=== PATIENT | male | born 1980 | race African-American/Black ===

== ENCOUNTER 2024-06-15 17:23 | Emergency (ER) | payer OTHER, SELFPAY ==
[2024-06-15] VITALS (39 sets, daily range): BP systolic 100–166; BP diastolic 52–99; PULSE 76–159; RESP 10–51; TEMP 36.8; O2SAT 96–100
--- NOTE | ~2024-06-15 | CT_ITS ---
EXAMINATION: CT brain wo con DATE: 06/15/2024 18:26 INDICATION: seizures . TECHNIQUE: Computed tomography (CT) of the head was performed without intravenous contrast. The mA wa s adjusted according to patient size. Iterative reconstruction technique was employed. The dose-lengt h product was 1346.88 mGy-cm. COMPARISON: None. FINDINGS: The vertex of the skull is excluded from the [id number] in the bone window images. No acute intracranial hemorrhage or extra-axial fluid collection. No hydrocephalus, mass, or herniation. No acute ischemic infarct. Unremarkable dural venous sinus attenuation. No acute osseous abnormality. Small posterior scalp contusion. Small right maxillary and right sphenoid retention cyst or polyp, mild ethmoid mucosal thickening, th e remaining aerated spaces are clear. IMPRESSION: No acute intracranial process. Reviewed, dictated and finalized at location K.
--- NOTE | ~2024-06-15 | XR_ITS ---
EXAMINATION: XR chest 1V portable Exam Date/Time: 06/15/2024 18:45 CDT HISTORY: seizures Comparison: None. RESULT: Lines, tubes, and devices: None. Lungs and pleura: Clear. Mild leftward rotation. Cardiomediastinal silhouette: Unremarkable. Other: No acute osseous or upper abdominal finding. IMPRESSION: No acute cardiopulmonary process. Reviewed, dictated and finalized at location K.
--- NOTE | 2024-06-15 17:34 | ECG_ITS ---
Test Date: 2024-06-15 19:18:58 Measurements Intervals [place] Rate: 97 P: 45 CO: 173 QRS: 43 QRSD: 98 T: 43 QT: 345 QTc: 440 Interpretive Statements SINUS RHYTHM No previous ECG available for comparison Electronically Signed On 06-16-2024 14:35:50 CDT by Gabbi Luu M.D.
[2024-06-15 17:51] LABS: Hematocrit 46.4 % (42.0-52.0); Hemoglobin 13.8 g/dL (14.0-18.0); Mean Corpuscular HGB Conc 29.7 g/dl (32-36); Mean Corpuscular Hemoglobin 31.5 pg (26-34); Mean Corpuscular Volume 105.9 fl (80-100); Mean Platelet Volume 9.9 fl (7.4-10.4); Platelet Count Result 333 k/mm3 (150-375); Red Blood Count 4.38 M/mm3 (4.6-6.20); Red Cell Distribution Width 12.6 % (11.5-14.5); White Blood Count 15.4 K/mm3 (4.5-10.0)
[2024-06-15] MEDS: levETIRAcetam 1500MG/NACL100ML 1,500 MG/100 ML BAG 400 MG IVPB (17:52)
[2024-06-15] MEDS: SODIUM CHLORIDE 0.9% IV 1,000 ML 999 ML IV CONT ×2 (17:52→19:08)
[2024-06-15 18:02] LABS: Ethanol < 10 mg/dL (<10)
[2024-06-15 18:07] LABS: Albumin Level 5.6 g/dL (3.5-5.1); Alkaline Phosphatase 148 U/L (38-126); Aspartate Amino Transferase 44 U/L (17-59); Bilirubin,Total 0.4 mg/dL (0.2-1.3); Blood Urea Nitrogen 20 mg/dL (9-20); Calcium 10.8 mg/dL (8.4-10.2); Carbon Dioxide < 5 mmol/L (22-30); Chloride 108 mmol/L (98-107); Creatine Kinase 559 U/L (55-170); Estimated CRCL calculation 65 ml/min; Estimated Glomerular Filt Rate 38; Glucose 173 mg/dL (65-110); Sodium 149 mmol/L (137-145)
[2024-06-15 18:09] LABS: INR 1.3; Partial Thromboplastin Time 24.9 Seconds (22.3-36.8); Prothrombin Time 16.7 Seconds (11.1-14.7)
[2024-06-15 18:12] LABS: Alanine Aminotransferase 77 U/L (6-50)
--- NOTE | 2024-06-15 18:14 | ED.SEIZURE ---
HPI - Seizure General Chief Complaint: Seizure Stated Complaint: seizure Time Seen by Provider: 06/15/24 17:29 Source: patient, EMS and old records reviewed Mode of arrival: EMS Limitations: clinical condition History of Present Illness HPI Narrative: Patient is a 43-year-old male who presents the ED via EMS with report of seizures. Per EMS report, patient had a seizure on the bus today. EMS was called. Patient does have a seizure history. Is on lamotrigine and Keppra. Reportedly had his medications increased 1 month ago. Upon arrival to the ED, patient was alert oriented, able to answer the nurse's questions. He then developed a generalized tonic-clonic seizure which lasted for approximately 1 minute. He did not require abortive medications. Upon my evaluation, patient somnolent, unable to answer questions, but maintaining his airway. On re-evaluation, patient alert oriented x4, able to answer all my questions. States his seizure medications are typically filled through Dr. Deleon PCP at [facility]. He does not currently follow with a neurologist. Significant other at bedside reports that patient has been out of his medications recently and has not made an appointment to have them refilled. Typically has 5-6 seizures every few months. Related Data Allergies Allergy/AdvReac Type Severity Reaction Status Date / Time No Known Drug Allergies Allergy Unknown Verified 06/15/24 17:55 Review of Systems Review of Systems: ROS unobtainable: Yes unobtainable due to medical condition Exam Narrative: GENERAL: Ill appearing, obese with BMI of 32.9, somnolent. HEAD: Normocephalic, atraumatic. RESPIRATORY: Airway patent, respirations nonlabored. Clear to auscultation bilaterally, no rales, rhonchi, wheezing. CARDIOVASCULAR: Tachycardic with regular rhythm without murmurs, rubs, or gallops. Peripheral pulses intact ABDOMINAL: Soft, nondistended. Normoactive BS. MUSCULOSKELETAL: No gross deformities. SKIN: Warm, dry, normal color. NEURO: Somnolent, unable to answer questions or follow commands. No ataxic movements. PSYCHIATRIC: Unable to assess Course Vital Signs Vital signs: Vital Signs Temperature 98.3 F 06/15/24 17:22 Pulse Rate 115 H 06/15/24 17:22 Respiratory Rate 24 H 06/15/24 17:22 Blood Pressure 151/99 H 06/15/24 17:22 Pulse Oximetry 98 06/15/24 17:22 Temperature 98.3 F 06/15/24 17:22 Pulse Rate 86 06/15/24 22:30 Respiratory Rate 22 H 06/15/24 22:30 Blood Pressure 105/81 06/15/24 20:32 Pulse Oximetry 98 06/15/24 22:00 Oxygen Delivery Room Air 06/15/24 22:00 MDM - Seizure MDM Narrative Medical decision making narrative: Patient presented to ED via EMS with report of seizure on public transportation bus. Patient was tachycardic upon arrival, rates 115-150s on monitor. Appears sinus. Blood pressure is stable. Patient is afebrile. Oxygen stable on room air. Patient maintaining respiratory status. No signs of airway compromise. Per ED nurse, patient was initially A&O x4 upon arrival. He then proceeded to have a generalized tonic-clonic seizure, which was witnessed by ED nurse. Lasted for approximately 1 minute. Resolved spontaneously. Upon my initial evaluation, patient was postictal, confused, unable to answer my questions. Re-evaluation approximately 30 minutes later, patient was coming back around, A&O X4, no gross focal deficits, moving all extremities equally, strength 5/5 in upper and lower extremities bilaterally, CN grossly intact, no complaints, able to tell me he was at the bus stop, states he feels like he usually does after a seizure. Last seizure was last month. Patient does admit to noncompliance with keppra and lamotrigine. States he has taken his medications 4 of the last 7 days. Did take his medications today. States he has not seen a neurologist in the last couple of years. CT brain negative. No acute intracranial findings. Chest x-ray is clear. CBC with white blood cell count of 15.4. H&H is stable. Platelets are stable. Patient profoundly acidotic on CMP. Bicarb less than 5. Anion gap unable to be calculated. ABG obtained. Consistent with metabolic acidosis. There is some compensation as pCO2 is low. Lactic acid > 12. Will give fluids, continue to monitor, and repeat labs. Patient remains alert and orientated at this time. Able to converse easily. CMP with Na 149. 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 No records to compare to. Fluids ongoing. Blood sugar is 173. No known hx of DM. Potentially stress rxn. Potassium within normal range. Magnesium elevated to 3.0. CK 559, likely r/t sz. Fluids ongoing. EKG with normal sinus rhythm, no concerning ST changes. Troponin is undetectable. UA is clear. Trace ketones. UDS clear. Alcohol level negative. Patient given 2 L of fluid in the ED. Repeat ABG is remarkably improved. PH normalized at 7.35. PCO2 35. PO2 89. Bicarb 19. Repeat CMP also much improved. Bicarb 18. Anion gap of 12. Creatinine down to 1.48. Lactic acid nearly normalized down to 2.3. Discussed repeat labs with patient. While these are very reassuring, discussed recommendation for admission to the hospital for further observation and neurologic evaluation given multiple seizures today and profound acidosis. Patient advised that he is unable to take off any further work. He states he cannot afford to stay in the hospital and miss work. I discussed that while I acknowledged the importance of attending work and providing for family, emphasized critical nature of patient's visit/labs today. Patient voiced understanding. Discussed that if patient would like to decline admission, that he would need to sign out against medical advice. Patient is in agreement with this. He voiced understanding of all risks of signing out AMA, including . Paperwork was signed. Discussed that patient can return at any time to resume evaluation. Will refer patient to Neurology for further outpatient workup. Also provided patient with refill of sz prescriptions, sent to pharmacy. Discussed very strict return precautions. Patient left the facility in stable condition, ambulatory with a steady gait, remained neurologically intact at time of leaving facility. Medical Records Attestation: I reviewed the patient's medical records. Lab Data Attestation: I reviewed the patient's lab results. 06/15/24 17:45 06/15/24 21:13 Labs: Lab Results 06/15/24 06/15/24 06/15/24 Range/Units 17:44 17:45 17:53 WBC 15.4 H (4.5-10.0) K/mm3 RBC 4.38 L (4.6-6.20) M/mm3 Hgb 13.8 L (14.0-18.0) g/dL Hct 46.4 (42.0-52.0) % MCV 105.9 H (80-100) fl MCH 31.5 (26-34) pg MCHC 29.7 L (32-36) g/dl RDW 12.6 (11.5-14.5) % Plt Count 333 (150-375) k/mm3 MPV 9.9 (7.4-10.4) fl Immature Gran % (Auto) Not Reportable Neut % (Auto) Not Reportable Lymph % (Auto) Not Reportable Frontier % (Auto) Not Reportable Eos % (Auto) Not Reportable Baso % (Auto) Not Reportable Lymph # (Auto) Not Reportable Frontier # (Auto) Not Reportable Eos # (Auto) Not Reportable Baso # (Auto) Not Reportable Abs Immat Gran (auto) Not Reportable Absolute Neuts (auto) Not Reportable Absolute Nucleated RBC Not Reportable Total Counted 100 Neutrophils % (Manual) 47 (46-73) % Band Neutrophils % 0 (0-6) % Lymphocytes % (Manual) 35.0 (18-44) % Monocytes % (Manual) 16 H (3-9) % Eosinophils % (Manual) 2 (0-4) % Nucleated RBC % Not Reportable Abs Neuts (Manual) 7.23 H (1.3-6.7) K/mm3 Abs Lymphs (Manual) 5.39 H (1.1-4.5) K/mm3 Abs Monocytes (Manual) 2.46 H (0.1-0.90) K/mm3 Absolute Eos (Manual) 0.30 (0.02-0.50) K/mm3 Platelet Estimate Adequate (Adequate) Hypochromasia 1+ Schistocytes None seen PT 16.7 H (11.1-14.7) Seconds INR 1.3 APTT 24.9 (22.3-36.8) Seconds Methemoglobin (0-1.5) %THb Sodium 149 H (137-145) mmol/L Potassium 4.0 (3.4-5.0) mmol/L Chloride 108 H (98-107) mmol/L Carbon Dioxide < 5 L (22-30) mmol/L Anion Gap (4-12) mmol/L BUN 20 (9-20) mg/dL Creatinine 1.96 H (0.7-1.3) mg/dL Estim Creat Clear Calc 65 ml/min Estimated GFR 38 L (59 - ) Glucose 173 H (65-110) mg/dL Lactic Acid (0.7-2.0) mmol/L Calcium 10.8 H (8.4-10.2) mg/dL Magnesium 3.0 H (1.6-2.3) mg/dL Total Bilirubin 0.4 (0.2-1.3) mg/dL AST 44 (17-59) U/L ALT 77 H (6-50) U/L Alkaline Phosphatase 148 H (38-126) U/L Total Creatine Kinase 559 H (55-170) U/L Troponin I < 0.012 (0.000-0.034) ng/mL Total Protein 10.0 H (6.3-8.2) g/dL Albumin 5.6 H (3.5-5.1) g/dL Urine Color (Yellow) Urine Appearance (Clear) Urine pH (5.0-9.0) Ur Specific [place] (1.001-1.035) Urine Protein (Negative) mg/dL Urine Glucose (UA) (Negative) mg/dL Urine Ketones (Negative) mg/dL Ur Blood (Man) (Negative) Urine Nitrate (Negative) Urine Bilirubin (Negative) Urine Urobilinogen (<2.0) mg/dL Leukocyte Esterase Rfl (Negative) KALINA/UL Urine RBC (0-2) /hpf Urine WBC (0-3) /hpf Ur Squamous Epith Cells (Few) /hpf Urine Bacteria /hpf Urine Casts Hyaline Casts (None) /lpf Urine Opiates Screen (Negative) Urine Methadone Screen (Negative) Ur Barbiturates Screen (Negative) Ur Phencyclidine Scrn (Negative) Ur Amphetamine Screen (Negative) U Benzodiazepines Scrn (Negative) Urine Cocaine Screen (Negative) U Cannabinoids Screen (Negative) Ethyl Alcohol < 10 (<10) mg/dL 06/15/24 06/15/24 06/15/24 Range/Units 18:05 18:27 20:37 WBC (4.5-10.0) K/mm3 RBC (4.6-6.20) M/mm3 Hgb (14.0-18.0) g/dL Hct (42.0-52.0) % MCV (80-100) fl MCH (26-34) pg MCHC (32-36) g/dl RDW (11.5-14.5) % Plt Count (150-375) k/mm3 MPV (7.4-10.4) fl Immature Gran % (Auto) Neut % (Auto) Lymph % (Auto) [place] % (Auto) Eos % (Auto) Baso % (Auto) Lymph # (Auto) [place] # (Auto) Eos # (Auto) Baso # (Auto) Abs Immat Gran (auto) Absolute Neuts (auto) Absolute Nucleated RBC Total Counted Neutrophils % (Manual) (46-73) % Band Neutrophils % (0-6) % Lymphocytes % (Manual) (18-44) % Monocytes % (Manual) (3-9) % Eosinophils % (Manual) (0-4) % Nucleated RBC % Abs Neuts (Manual) (1.3-6.7) K/mm3 Abs Lymphs (Manual) (1.1-4.5) K/mm3 Abs Monocytes (Manual) (0.1-0.90) K/mm3 Absolute Eos (Manual) (0.02-0.50) K/mm3 Platelet Estimate (Adequate) Hypochromasia Schistocytes PT (11.1-14.7) Seconds INR APTT (22.3-36.8) Seconds Methemoglobin 0.5 0.3 (0-1.5) %THb Sodium (137-145) mmol/L Potassium (3.4-5.0) mmol/L Chloride (98-107) mmol/L Carbon Dioxide (22-30) mmol/L Anion Gap (4-12) mmol/L BUN (9-20) mg/dL Creatinine (0.7-1.3) mg/dL Estim Creat Clear Calc ml/min Estimated GFR (59 - ) Glucose (65-110) mg/dL Lactic Acid (0.7-2.0) mmol/L Calcium (8.4-10.2) mg/dL Magnesium (1.6-2.3) mg/dL Total Bilirubin (0.2-1.3) mg/dL AST (17-59) U/L ALT (6-50) U/L Alkaline Phosphatase (38-126) U/L Total Creatine Kinase (55-170) U/L Troponin I (0.000-0.034) ng/mL Total Protein (6.3-8.2) g/dL Albumin (3.5-5.1) g/dL Urine Color Yellow (Yellow) Urine Appearance Clear (Clear) Urine pH 5.5 (5.0-9.0) Ur Specific [place] 1.024 (1.001-1.035) Urine Protein 2+ H (Negative) mg/dL Urine Glucose (UA) Negative (Negative) mg/dL Urine Ketones Trace H (Negative) mg/dL Ur Blood (Man) 2+ H (Negative) Urine Nitrate Negative (Negative) Urine Bilirubin Negative (Negative) Urine Urobilinogen 0.2 (<2.0) mg/dL Leukocyte Esterase Rfl Negative (Negative) KALINA/UL Urine RBC 0-2 (0-2) /hpf Urine WBC 0-5 (0-3) /hpf Ur Squamous Epith Cells None seen (Few) /hpf Urine Bacteria None seen /hpf Urine Casts 6-10 Hyaline Casts Present (None) /lpf Urine Opiates Screen Negative (Negative) Urine Methadone Screen Negative (Negative) Ur Barbiturates Screen Negative (Negative) Ur Phencyclidine Scrn Negative (Negative) Ur Amphetamine Screen Negative (Negative) U Benzodiazepines Scrn Negative (Negative) Urine Cocaine Screen Negative (Negative) U Cannabinoids Screen Negative (Negative) Ethyl Alcohol (<10) mg/dL 06/15/24 Range/Units 21:13 WBC (4.5-10.0) K/mm3 RBC (4.6-6.20) M/mm3 Hgb (14.0-18.0) g/dL Hct (42.0-52.0) % MCV (80-100) fl MCH (26-34) pg MCHC (32-36) g/dl RDW (11.5-14.5) % Plt Count (150-375) k/mm3 MPV (7.4-10.4) fl Immature Gran % (Auto) Neut % (Auto) Lymph % (Auto) [place] % (Auto) Eos % (Auto) Baso % (Auto) Lymph # (Auto) [place] # (Auto) Eos # (Auto) Baso # (Auto) Abs Immat Gran (auto) Absolute Neuts (auto) Absolute Nucleated RBC Total Counted Neutrophils % (Manual) (46-73) % Band Neutrophils % (0-6) % Lymphocytes % (Manual) (18-44) % Monocytes % (Manual) (3-9) % Eosinophils % (Manual) (0-4) % Nucleated RBC % Abs Neuts (Manual) (1.3-6.7) K/mm3 Abs Lymphs (Manual) (1.1-4.5) K/mm3 Abs Monocytes (Manual) (0.1-0.90) K/mm3 Absolute Eos (Manual) (0.02-0.50) K/mm3 Platelet Estimate (Adequate) Hypochromasia Schistocytes PT (11.1-14.7) Seconds INR APTT (22.3-36.8) Seconds Methemoglobin (0-1.5) %THb Sodium 137 (137-145) mmol/L Potassium 4.0 (3.4-5.0) mmol/L Chloride 107 (98-107) mmol/L Carbon Dioxide 18 L (22-30) mmol/L Anion Gap 12 (4-12) mmol/L BUN 23 H (9-20) mg/dL Creatinine 1.48 H (0.7-1.3) mg/dL Estim Creat Clear Calc 85 ml/min Estimated GFR 52 L (59 - ) Glucose 107 (65-110) mg/dL Lactic Acid 2.3 H (0.7-2.0) mmol/L Calcium 9.2 (8.4-10.2) mg/dL Magnesium (1.6-2.3) mg/dL Total Bilirubin 0.3 (0.2-1.3) mg/dL AST 40 (17-59) U/L ALT 64 H (6-50) U/L Alkaline Phosphatase 123 (38-126) U/L Total Creatine Kinase (55-170) U/L Troponin I (0.000-0.034) ng/mL Total Protein 8.0 (6.3-8.2) g/dL Albumin 4.6 (3.5-5.1) g/dL Urine Color (Yellow) Urine Appearance (Clear) Urine pH (5.0-9.0) Ur Specific [place] (1.001-1.035) Urine Protein (Negative) mg/dL Urine Glucose (UA) (Negative) mg/dL Urine Ketones (Negative) mg/dL Ur Blood (Man) (Negative) Urine Nitrate (Negative) Urine Bilirubin (Negative) Urine Urobilinogen (<2.0) mg/dL Leukocyte Esterase Rfl (Negative) KALINA/UL Urine RBC (0-2) /hpf Urine WBC (0-3) /hpf Ur Squamous Epith Cells (Few) /hpf Urine Bacteria /hpf Urine Casts Hyaline Casts (None) /lpf Urine Opiates Screen (Negative) Urine Methadone Screen (Negative) Ur Barbiturates Screen (Negative) Ur Phencyclidine Scrn (Negative) Ur Amphetamine Screen (Negative) U Benzodiazepines Scrn (Negative) Urine Cocaine Screen (Negative) U Cannabinoids Screen (Negative) Ethyl Alcohol (<10) mg/dL ABG Data ABG results: 06/15/24 06/15/24 18:27 20:37 Puncture Site Right radial Right radial ABG pH 6.956 L* 7.350 ABG pCO2 20.2 L* 35.5 ABG pO2 116.7 H 89.0 ABG PO2/FiO2 Ratio 5.56 4.24 ABG HCO3 4.4 L 19.2 L ABG O2 Saturation 95.4 96.5 ABG O2 Content 17.9 17.0 ABG Base Excess -26.3 -5.7 A-a Gradient 8.8 18.2 Oxyhemoglobin 94.9 95.6 Carboxyhemoglobin 0.3 0.2 Reduced Hemoglobin 4.3 3.9 Total Hemoglobin 13.3 12.6 O2 Delivery Device Room air Not Reportable O2 Liters/Min Not Reportable Not Reportable FiO2 21 21 Attestation: I personally reviewed and interpreted this ABG as follows: Imaging Data Attestation: I personally reviewed and interpreted this imaging study as follows: Radiologist's impression: ITS Impressions Head CT 06/15/24 18:33 IMPRESSION: No acute intracranial process. Chest X-Ray 06/15/24 20:01 IMPRESSION: No acute cardiopulmonary process. ECG Data EKG #1: Attestation: I personally reviewed and interpreted this ECG as follows: ECG completion date: 06/15/24 ECG completion time: 19:18 EKG Interpretation: normal rate (97), sinus rhythm and no ST changes Discharge Plan Discharge Clinical Impression: Generalized seizure, Noncompliance with medication regimen, Metabolic acidosis, KIRSTIE (acute kidney injury), Lactic acidosis, Elevated CK Patient Disposition: Left Against Medical Advice Condition: Guarded Prognosis Instructions: Epilepsy (ED), Recurrent Seizures in Adults (ED), Generalized Tonic Clonic Seizures (ED) Additional Instructions: It was recommended that you stay in the hospital for observation of your seizures. You are leaving against medical advice. It is recommended that you follow-up with primary care doctor and Neurology for further evaluation. Stay well hydrated. Take all seizure medications as prescribed. Return to the ED if you experience recurrent symptoms, feeling weak lightheaded, passing out, unable to keep down food or drink, fevers, chest pain, difficulty breathing, numbness or weakness or arm or leg, or any other symptoms of concern. Patient Language: Chinese Prescriptions: New levetiracetam [Keppra] 750 mg tablet 750 mg PO BID Qty: 60 0RF lamotrigine 150 mg tablet 75 mg PO BID Qty: 60 0RF Follow-up/Referrals: Dante Dunham MD [Physician] - (NEUROLOGY) UNKNOWN,DOCTOR [Primary Care Provider] - Madeline Khanna DO [Physician] - (PRIMARY CARE) Time of Disposition: 22:26
[2024-06-15 18:15] LABS: Troponin I < 0.012 ng/mL (0.000-0.034)
[2024-06-15 18:18] LABS: Eosinophils Percent Manual 2 % (0-4); Hypochromasia 1+; Lymphocytes Absolute Manual 5.39 K/mm3 (1.1-4.5); Monocytes Absolute Manual 2.46 K/mm3 (0.1-0.90); Monocytes Percent Manual 16 % (3-9); Neutrophils Percent Manual 47 % (46-73); Platelet Estimate Adequate (Adequate); Schistocytes None Seen; Total Cells Counted 100
--- NOTE | 2024-06-15 18:22 | PCRCNOTE ---
RT here to draw blood gas, pt in CT.
[2024-06-15 18:30] LABS: Add Urine Microscopic? YES; Appearance Urine Clear (Clear); Bacteria Urine None Seen /hpf; Bilirubin Urine Negative (Negative); Blood Urine 2+ (Negative); Color Urine Yellow (Yellow); Glucose Urine UA Negative (Negative); Hyaline Casts Urine Present /lpf; Ketones Urine Trace mg/dL (Negative); Leukocyte Esterase Ur Negative LEU/UL (Negative); Nitrate Urine Negative (Negative); Protein Urine 2+ mg/dL (Negative); RBC Urine 0-2 /hpf (0-2); Specific Grav Ur 1.024 (1.001-1.035); Squamous Epithelial Cell Urine None Seen /hpf (Few); Urobilinogen Urine 0.2 mg/dL (<2.0); WBC Urine 0-5 /hpf (0-3); pH Urine 5.5 (5.0-9.0)
[2024-06-15 18:33] LABS: Band Neutrophils Percent 0 % (0-6); Neutrophils Absolute Manual 7.23 K/mm3 (1.3-6.7)
[2024-06-15 18:33] LABS: Alveolar/Arterial O2 Gradient 8.8 mmHg; Base Excess ABG -26.3 mEq/l (+/-2.0); Carboxyhemoglobin 0.3 % THb (0-2.0); Fractional Inspired Oxygen 21 %; HCO3 ABG 4.4 mEq/l (22.0-26.0); Methemoglobin ABG 0.5 %THb (0-1.5); Oxygen Content ABG 17.9 %vol (16.0-22.0); Oxygen Saturation ABG 95.4 % (95.0-100.0); Oxyhemoglobin 94.9 % THb (90.0-100.0); PO2 ABG 116.7 mmHg (80.0-100.0); PO2 FiO2 Ratio Arterial Blood 5.56 %; Reduced Hemoglobin 4.3 %THb (0-5.0); Total Hemoglobin 13.3 g/dL (12.0-18.0)
[2024-06-15 18:38] LABS: pH ABG 6.956 (7.350-7.450)
[2024-06-15 18:39] LABS: Device ROOM AIR; Modified Allen's Test Pass; PCO2 ABG 20.2 mmHg (35.0-45.0); Site Drawn RIGHT RADIAL
--- OUTSIDE RECORDS SUMMARY | 2024-06-15 19:09 | XMS_ITS | CONTINUITY OF CARE DOCUMENT ---
Author Name dottie sinclair Address Unknown Organization [facility] Office Address [address] [place] [address] Phone [phone] Care Team Providers Care Artist'S Manager Name Role Phone Jordan MONSIVAIS, Ajay Unavailable PROMISE ZAZUETA MD Unavailable PROMISE ZAZUETA MD Unavailable PROBLEMS Condition Status Date Provider Notes Hx of DVT active Manolo Johnson Venous insufficiency, chronic active Bernadette Johnson INSURANCE PROVIDERS Payer name Policy type / Coverage type [place] [employer] ID HE[employer] AND FAMILY SERVICES Medicaid 0 [id number] TREATMENT PLAN Date Name Venous Doppler Bilat eral LE - Reflux
[2024-06-15 19:17] LABS: Barbiturate Screen Urine Negative (Negative); Benzodiazepines Screen Urine Negative (Negative)
[2024-06-15 19:22] LABS: Amphetamine Screen Urine Negative (Negative); Cannabinoid Screen Urine Negative (Negative); Cocaine Screen Urine Negative (Negative); Methadone Screen Urine Negative (Negative); Opiate Screen Urine Negative (Negative); Phencyclidine Screen Urine Negative (Negative)
--- OUTSIDE RECORDS SUMMARY | 2024-06-15 19:29 | XMS_ITS | CONTINUITY OF CARE DOCUMENT ---
Author Name dottie sinclair Address Unknown Organization [facility] Office Address [address] [place] [address] Phone [phone] Care Team Providers Care Bridge Builder Name Role Phone Jordan MONSIVAIS, Ajay Unavailable PROMISE ZAZUETA MD Unavailable PROMISE ZAZUETA MD Unavailable [phone] PROBLEMS Condition Status Date Provider Notes Hx of DVT active Manolo Johnson Venous insufficiency, chronic active Bernadette Johnson INSURANCE PROVIDERS Payer name Policy type / Coverage type [place] red [employer] ID HEALTHCARE AND FAMILY SERVICES Medicaid 0 [id number] TREATMENT PLAN Date Name Venous Doppler Bilat eral LE - Reflux
[2024-06-15 20:50] LABS: Alveolar/Arterial O2 Gradient 18.2 mmHg; Base Excess ABG -5.7 mEq/l (+/-2.0); Carboxyhemoglobin 0.2 % THb (0-2.0); Fractional Inspired Oxygen 21 %; HCO3 ABG 19.2 mEq/l (22.0-26.0); Methemoglobin ABG 0.3 %THb (0-1.5); Oxygen Saturation ABG 96.5 % (95.0-100.0); Oxyhemoglobin 95.6 % THb (90.0-100.0); PCO2 ABG 35.5 mmHg (35.0-45.0); PO2 FiO2 Ratio Arterial Blood 4.24 %; Reduced Hemoglobin 3.9 %THb (0-5.0); Total Hemoglobin 12.6 g/dL (12.0-18.0)
[2024-06-15 20:51] LABS: Modified Allen's Test Pass; Site Drawn RIGHT RADIAL
[2024-06-15 21:35] LABS: Alanine Aminotransferase 64 U/L (6-50); Albumin Level 4.6 g/dL (3.5-5.1); Alkaline Phosphatase 123 U/L (38-126); Anion Gap 12 mmol/L (4-12); Aspartate Amino Transferase 40 U/L (17-59); Bilirubin,Total 0.3 mg/dL (0.2-1.3); Blood Urea Nitrogen 23 mg/dL (9-20); Calcium 9.2 mg/dL (8.4-10.2); Carbon Dioxide 18 mmol/L (22-30); Chloride 107 mmol/L (98-107); Estimated CRCL calculation 85 ml/min; Estimated Glomerular Filt Rate 52; Glucose 107 mg/dL (65-110); Lactic Acid Reflex 2.3 mmol/L (0.7-2.0); Sodium 137 mmol/L (137-145)
[2024-06-16 00:22] LABS: Reflex Lactic Acid Yes or No Add Lactic
== END 2024-06-15 22:40 | disposition left against medical advice (07) ==
PROVIDERS: Emergency Provider Physician Assistant
DX: G40.901 Epilepsy, unspecified, not intractable, with status epilepticus (principal); T42.6X6A Underdosing of other antiepileptic and sedative-hypnotic drugs, initial encounter; N17.9 Acute kidney failure, unspecified; E87.20 Acidosis, unspecified; R74.8 Abnormal levels of other serum enzymes
CPT/HCPCS: 36415; 36600; 70450; 71045; 80053; 80307; 81001; 82077; 82375; 82550; 82805; 83050; 83605; 83735; 84484; 85018; 85025; 85610; 85730; 93005; 96361; 96374; 99284; J1953; J7030